=== PATIENT | male | born 1980 | race Caucasian/White ===

== ENCOUNTER → 2016-08-23 | Outpatient (CLI) | payer OTHER ==
--- NOTE | 2016-08-23 09:46 | DI ---
Indication: ITS.REASON: S46.912D STRAIN; G56.22 LEFT NERVE NEUROPATHY left shoulder pain for several months after lifting injury PROCEDURE: MRI SHOULDER LEFT W/O CONTRAST: Encounter: Initial Comparison: None Technique: Multiplanar multisequence MR imaging of the left shoulder was performed without contrast. Findings: The long head biceps tendon is intact and located within the bicipital groove. Subscapularis tendon is intact. The supraspinatus tendon is normal. The infraspinatus and teres minor tendons are normal. Bone marrow signal intensity is normal. No acute fracture. Acromioclavicular joint is maintained. No fluid in the subacromial subdeltoid bursa. There is a fairly extensive tear involving the superior and posterior labrum extending from 12 to 9:00. There are some small paralabral cysts present posterior to the glenoid. Muscular bulk and signal intensity is normal. Impression: 1. Superior and posterior labral tear. 2. No rotator cuff tear. .
== END ==
LOC: IMA 08:14
PROVIDERS: ATTEND Nurse Practitioner
DX: S43.492A Other sprain of left shoulder joint, initial encounter (principal); X50.0XXA Overexertion from strenuous movement or load, initial encounter; Y93.89 Activity, other specified; Y92.69 Other specified industrial and construction area as the place of occurrence of the external cause; Y99.0 Civilian activity done for income or pay; M25.512 Pain in left shoulder

== ENCOUNTER → 2016-10-04 | Outpatient (CLI) | payer OTHER | LOC: NEU 14:15 | PROVIDERS: ATTEND Orthopaedic Surgery | DX: M25.512 Pain in left shoulder (principal); M54.10 Radiculopathy, site unspecified | CPT/HCPCS: 95886; 95909 ==